=== PATIENT | female | born 1945 | race Caucasian/White ===

== ENCOUNTER 2019-01-21 15:27 | Emergency (ER) | payer MEDICARE, BC ==
[2019-01-21] MEDS ORDERED: Aspirin Chewable 81 MG TAB ONE (15:34)
[2019-01-21] MEDS ORDERED: Diltiazem 125 MG/25 ML ONE (15:35)
[2019-01-21] MEDS ORDERED: Enoxaparin Sodium 100 MG/ML SYRINGE ONE (15:35)
[2019-01-21 15:42] LABS: #Basophils 0.1 thou/uL (0.0-0.2); #Lymphocytes 1.3 thou/uL (1.20-3.40); #Monocytes 0.3 thou/uL (0.11-0.59); #Neutrophils 6.9 thou/uL (1.40-6.50); %Basophils 1.1 % (0.0-1.0); %Eosinophils 0.3 % (0.0-10.0); %Lymphocytes 15.4 % (21.0-51.0); %Monocytes 3.7 % (0.0-10.0); %Neutrophils 79.5 % (42.0-75.0); Hemoglobin 13.8 g/dL (12.0-16.0); Mean Corpuscular HGB CONC 31.1 g/dL (32.0-36.0); Mean Corpuscular Volume 96.6 fL (78.0-98.0); Mean Platelet Volume 6.4 fL (7.4-10.4); Platelet Count 267 thou/uL (130-400); RBC Distribution Width 13.8 % (11.5-14.5); White Blood Cell (WBC) Count 8.6 thou/uL (4.8-10.8)
[2019-01-21 15:59] LABS: ALT (SGPT) 28 U/L (8-55); AST (SGOT) 26 U/L (5-34); Albumin 4.1 g/dL (3.4-4.8); Alkaline Phosphatase 84 U/L (40-110); Anion Gap 20 mmol/L (10-20); BUN (Urea Nitrogen) 19 mg/dL (9.8-20.1); Bilirubin, Total 0.3 mg/dL (0.2-1.2); Calc. Creatinine Clearance 0 mL/min (70-130); Calcium 9.4 mg/dL (7.8-10.44); Carbon Dioxide 23 mmol/L (23-31); Chloride 98 mmol/L (98-107); Estimated GFR-MDRD 43; Globulin 2.5 g/dL (2.4-3.5); Glucose 110 mg/dL (83-110); Potassium 3.8 mmol/L (3.5-5.1); Protein, Total 6.6 g/dL (6.0-8.3); Sodium 137 mmol/L (136-145)
--- NOTE | 2019-01-21 20:02 | RAD ---
PORTABLE CHEST: 01/21/19 No prior films were available for comparison. An AP portable film at 1539 shows cardiomegaly and mild congestion and edema. There is a right pleur al effusion. I cannot tell if there is an underlying infiltrate or not. Dense calcification of the ao rtic arch is evident. No mediastinal mass was seen. IMPRESSION: 1. CHF with prominent right pleural effusion. 2. The right basilar haziness may be due to the fluid, atelectasis, or true infiltrate. POS: HOME
== END 2019-01-21 17:47 | disposition short-term general hospital (02) ==
LOC: BURERS 15:27
DX: I48.91 Unspecified atrial fibrillation (principal); I11.0 Hypertensive heart disease with heart failure; I50.9 Heart failure, unspecified; J06.9 Acute upper respiratory infection, unspecified; F17.210 Nicotine dependence, cigarettes, uncomplicated
CPT/HCPCS: 36415; 71045; 80053; 82553; 83605; 83880; 84484; 85025; 87040; 93005; 94760; 96365; 96366; 96368; 96372; 96376; J1650; J1956

== ENCOUNTER 2022-07-24 11:17 | Emergency (ER) | payer MEDICARE, BC ==
[2022-07-24 12:14] LABS: #Basophils 0.1 thou/uL (0.0-0.2); #Eosinphils 0.2 thou/uL (0.0-0.7); #Lymphocytes 1.2 thou/uL (1.20-3.40); #Monocytes 0.6 thou/uL (0.11-0.59); #Neutrophils 8.5 thou/uL (1.40-6.50); %Basophils 0.8 % (0.0-1.0); %Eosinophils 2.2 % (0.0-10.0); %Lymphocytes 11.5 % (21.0-51.0); %Monocytes 5.7 % (0.0-10.0); %Neutrophils 79.9 % (42.0-75.0); Hemoglobin 15.1 g/dL (12.0-16.0); Mean Corpuscular HGB CONC 33.3 g/dL (32.0-36.0); Mean Corpuscular Hemoglobin 32.1 pg (27.0-31.0); Mean Corpuscular Volume 96.3 fl (78.0-98.0); Mean Platelet Volume 8.1 fL (7.4-10.4); Platelet Count 233 10x3/uL (130-400); RBC Distribution Width 11.7 % (11.5-14.5); Red Blood Cell (RBC) Count 4.72 mill/uL (4.20-5.40); White Blood Cell (WBC) Count 10.6 10x3/uL (4.8-10.8)
[2022-07-24 12:36] LABS: ALT (SGPT) 23 U/L (8-55); AST (SGOT) 22 U/L (5-34); Albumin 4.5 g/dL (3.4-4.8); Alkaline Phosphatase 92 U/L (40-110); Anion Gap 12 mmol/L (10-20); BUN (Urea Nitrogen) 17 mg/dL (9.8-20.1); Bilirubin, Total 0.4 mg/dL (0.2-1.2); Calc. Creatinine Clearance 0 mL/min (70-130); Calcium 9.7 mg/dL (7.8-10.44); Carbon Dioxide 28 mmol/L (23-31); Chloride 103 mmol/L (98-107); Estimated GFR 77; Globulin 2.8 g/dL (2.4-3.5); Glucose 127 mg/dL (83-110); Lipase 74 U/L (8-78); Potassium 3.8 mmol/L (3.5-5.1); Protein, Total 7.3 g/dL (5.8-8.1); Sodium 139 mmol/L (136-145)
[2022-07-24 12:56] LABS: CKMB 2.5 ng/mL (0-6.6)
[2022-07-24] MEDS ORDERED: Aspirin Chewable 81 MG TAB ONE (13:42)
[2022-07-24 13:52] LABS: Bilirubin Negative (Negative); Blood, Urine Trace (Negative); Clarity Slightly Cloudy (Clear); Glucose, Urine (Dipstick) Negative (Negative); Ketone, Urine Negative (Negative); Leukocyte Moderate (Negative); Nitrite Negative (Negative); Protein, Urine (Dipstick) Negative (Neg-Trace); Specific Gravity, Urine 1.015 (1.005-1.030); Urobilinogen 0.2 mg/dL (Less than 2)
[2022-07-24 14:01] LABS: RBC/HPF 0-3 HPF (0-3)
[2022-07-24 14:02] LABS: Bacteria/HPF 2+ HPF (None Seen)
[2022-07-24 14:44] LABS: Troponin I 0.031 ng/mL (< 0.028)
== END 2022-07-24 15:15 | disposition home or self-care (01) ==
LOC: BURERS 11:17
DX: R53.1 Weakness (principal); R77.8 Other specified abnormalities of plasma proteins; I11.0 Hypertensive heart disease with heart failure; I50.9 Heart failure, unspecified; Z87.891 Personal history of nicotine dependence
CPT/HCPCS: 71045; 80053; 81003; 81015; 82553; 83605; 83690; 83880; 84484; 85025; 87086; 93005